=== PATIENT | female | born 1990 | race Caucasian/White ===

== ENCOUNTER 2025-02-21 11:12 | Outpatient (CLI) | payer OTHER, SELFPAY | END 2025-02-21 11:13 | disposition home or self-care (01) | PROVIDERS: Visit Provider Obstetrics & Gynecology | DX: N92.6 Irregular menstruation, unspecified (principal); Z79.899 Other long term (current) drug therapy; Z13.6 Encounter for screening for cardiovascular disorders | CPT/HCPCS: 80061; 82306; 84443 ==